=== PATIENT | female | born 1950 | race Caucasian/White ===

== ENCOUNTER 2018-07-03 07:44 | Emergency (ER) | payer MEDICARE, OTHER ==
[~2018-07-03] VITALS: Ht 170.2 cm; Wt 78.0 kg
[2018-07-03 07:50] VITALS: BP 134/82
== END 2018-07-03 09:58 | disposition left against medical advice (07) ==
LOC: ER 07:44
DX: Z53.21 Procedure and treatment not carried out due to patient leaving prior to being seen by health care provider (principal)
CPT/HCPCS: 99281